=== PATIENT | female | born 1930 | race Caucasian/White ===

== ENCOUNTER 2016-07-23 10:00 | Emergency (ER) | payer MEDICARE, BC ==
--- NOTE | ~2016-07-23 | CR169 ---
[facility] A Service of [facility] RADIOLOGY TEXT RESULTS PATIENT: PERNELL BOX LOCATION: SED : 28 UNIT #: [id number] AGE: [address]: Shon Castro MD SEX: F ORDER DR: [id number] [address] [address] [id number] MR#: [id number] #: [id number] NAME: PERNELL BOX : 1930 SEX: F STUDY DATE/TIME: 07/23/2016 10:56 UNIT: SED ROOM: STUDY DESCRIPTION: CR Knee 2 Views Lt Attending Physician: Shon Castro M.D. Ordering Physician: Shon Castro M.D. Primary Care Physician: Pascual Wagner M.D. MEDICAL IMAGING REPORT This report is preliminary unless electronic signature is present. EXAM Left knee 2 views 07/23/2016 1056 hours HISTORY Knee pain since July 01, 2016. No reported injury. COMPARISON None. FINDINGS AP and cross-table lateral views are performed. The knee is flexed almost to 90 degrees on the lateral view which would lower the sensitivity for detection of knee joint effusion. No effusion is seen. There is no significant joint space loss, spurring or loose body. IMPRESSION There is no significant joint space loss, spurring or loose body seen. No definite effusion is seen however the degree of flexion of the knee on the lateral view would lower the sensitivity for detection of small effusion. Dictated by... Randi Pascual M.D. THIS IS AN ELECTRONICALLY VERIFIED REPORT Randi Pascual M.D. at 07/23/2016 2:28 PM PAOLO/moni TD: 07/23/2016 12:41 JOB #: [id number] MEDICAL IMAGING REPORT Page 1 of 1
[~2016-07-23 10:00] MED LIST: ADVIL100 M1; ADVIL200 M1 PO; AMLODIPINE BESYL5 MG PO; ATENOLOL PO; ATENOLOL25 MG PO; CELEBREX PO; FLEXERIL PO; HYDROCODON-ACET15 M1 PO; LISINOPRIL20 MG PO; MEDI-MECLIZINE25 M1 PO; MOTRIN400 M1 PO; NASONEX17 GM; NORCO 5/325 TAB1 TAB PO; PERCOCET 5-3251 TAB PO; PREDNISONE50 MG PO; VALIUM2 MG PO; VOLTAREN50 MG PO
== END 2016-07-23 11:43 | disposition home or self-care (01) ==
LOC: SED 10:00
DX: M17.12 Unilateral primary osteoarthritis, left knee (principal); I10 Essential (primary) hypertension; Z79.899 Other long term (current) drug therapy
CPT/HCPCS: 73560; 99283